=== PATIENT | male | born 1970 ===

== ENCOUNTER 2017-03-10 14:25 | Emergency (ER) | payer OTHER, BC ==
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
[2017-03-10 19:08] VITALS: BP 120/78; PULSE 78; RESP 17; TEMP 97; O2SAT 98
== END 2017-03-10 19:08 | disposition home or self-care (01) ==
LOC: H.ER 14:25
DX: M25.512 Pain in left shoulder (principal); R00.2 Palpitations; V43.52XA Car driver injured in collision with other type car in traffic accident, initial encounter